=== PATIENT | female | born 1955 | race Caucasian/White ===

== ENCOUNTER 2022-01-04 09:38 | Emergency (ER) | payer OTHER ==
[~2022-01-04] VITALS: Ht 170.2 cm; Wt 142.9 kg
[~2022-01-04 09:38] MED LIST: ALBIPROI INH; CEPH500 PO; CYCL10 PO; DOXY100 PO; HYDACE5 PO; HYDGUAL120 PO; OXYACE5T PO; PRED20 PO
[2022-01-04] MEDS ORDERED: ELIQUIS5 M2 PO (11:13)
[2022-01-04] MEDS ORDERED: TRAM50 PO (12:13)
== END 2022-01-04 12:25 | disposition home or self-care (01) ==
LOC: ER 09:38
DX: S80.01XA Contusion of right knee, initial encounter (principal); S50.12XA Contusion of left forearm, initial encounter; M25.512 Pain in left shoulder; M54.6 Pain in thoracic spine; G89.29 Other chronic pain; V69.9XXA Occupant (driver) (passenger) of heavy transport vehicle injured in unspecified traffic accident, initial encounter; Y92.9 Unspecified place or not applicable; Z79.01 Long term (current) use of anticoagulants
CPT/HCPCS: 72070; 73030

== ENCOUNTER 2022-11-11 13:43 | Emergency (ER) | payer OTHER ==
[~2022-11-11] VITALS: Ht 170.2 cm; Wt 153.3 kg
[~2022-11-11 13:43] MED LIST changes: +ELIQUIS5 M2 PO; +TRAM50 PO
[2022-11-11] MEDS ORDERED: METO25 PO (13:54)
[2022-11-11] MEDS ORDERED: SPIRONOLACTONE50 MG PO (13:54)
[2022-11-11 15:00] LABS: Albumin, Blood 3.1 g/dL (3.4-5.0); Albumin/Globulin Ratio 0.7 (0.8-1.8); Bilirubin, Total 0.5 mg/dL (0.1-1.0); Bun/Creatinine Ratio 15.4 (12.0-20.0); Calcium, Blood 8.8 mg/dL (8.5-10.1); Creatinine, Blood 0.85 mg/dL (0.40-1.00); Globulin, Blood 4.6 g/dL (2.2-4.0); Potassium, Blood 4.4 mmol/L (3.5-5.5); Total Protein, Blood 7.7 g/dL (6.4-8.2)
[2022-11-11 15:18] LABS: BASOPHILS ABSOLUTE AUTO 0.05 K/mm3 (0.00-0.23); BASOPHILS PERCENT AUTO 1 % (0-2); EOSINOPHILS ABSOLUTE AUTO 0.14 K/mm3 (0.00-0.68); EOSINOPHILS PERCENT AUTO 3 % (0-6); Hematocrit 46.5 % (33.0-51.0); Hemoglobin 14.7 g/dL (11.5-16.0); IMMATURE GRAN ABSOLUTE AUTO 0.02 K/mm3 (0.00-0.10); IMMATURE GRAN PERCENT AUTO 0 % (0-1); LYMPHOCYTES ABSOLUTE AUTO 2.07 K/mm3 (0.84-5.20); LYMPHOCYTES PERCENT AUTO 36 % (21-46); MONOCYTES PERCENT AUTO 11 % (4-13); Mean Corpuscular HGB 31.3 pg (26.0-34.0); Mean Corpuscular HGB Conc 31.6 g/dL (31.5-36.5); Mean Corpuscular Volume 99 fL (80-100); Mean Platelet Volume 9.6 fL (9.1-12.4); NEUTROPHILS PERCENT AUTO 49 % (41-73); Platelet Count 185 K/mm3 (150-400); RDW Coefficient Variation 14.6 % (11.7-14.2); RDW Standard Deviation 53.7 fL (35.1-46.3); White Blood Cell Count 5.68 K/mm3 (4.00-11.30)
[2022-11-11] MEDS ORDERED: PRED20 PO (16:35)
[2022-11-11] MEDS ORDERED: ALBU90OI INH (16:35)
[2022-11-11 16:53] LABS: Influenza A, PCR NEGATIVE (NEGATIVE); Influenza B, PCR NEGATIVE (NEGATIVE); Resp Syncytial Virus, PCR NEGATIVE (NEGATIVE); SARS-Cov-2 (COVID-19) PCR, MMC NEGATIVE (NEGATIVE)
== END 2022-11-11 17:01 | disposition home or self-care (01) ==
LOC: ER 13:43
PROVIDERS: Student in an Organized Health Care Education/Training Program
DX: B34.9 Viral infection, unspecified (principal); R06.2 Wheezing; Z79.01 Long term (current) use of anticoagulants; Z79.899 Other long term (current) drug therapy; Z20.822 Contact with and (suspected) exposure to COVID-19
CPT/HCPCS: 0241U; 36415; 71046; 80053; 83880; 85025; 93005; 93010; 94644; 94664; 96374; 99285-25; J2930

== ENCOUNTER → 2025-03-08 | Outpatient (CLI) | payer OTHER ==
[~2025-03-08] MED LIST changes: +ALBU90OI INH; +METO25 PO; +SPIRONOLACTONE50 MG PO
== END ==
LOC: LAB SHORT 07:46 → LAB 07:46
DX: N95.0 Postmenopausal bleeding (principal)
CPT/HCPCS: 88305